=== PATIENT | male | born 1950 ===

== ENCOUNTER 2019-06-12 05:41 | Day surgery (SDC) | payer OTHER ==
[~2019-06-12] VITALS: Ht 172.7 cm; Wt 78.1 kg
[~2019-06-12 05:41] MED LIST: AMLO10 PO; AMLO5; ATOR10 PO; HYDHCL25 PO; LORA.5 PO; OMEPRAZOLE20 MG PO; TAMS.4ER PO
--- NOTE | 2019-06-12 06:43 | NUR ---
PATIENT HAS HEARING AID IN RIGHT EAR, WILL LEAVE IN PLACE, PATIENT STATES HE LEFT HIS LEFT SIDE HEARING AID AT HOME, DIDN'T WANT TO RISK LOSS OF BOTH PER PATIENT. PATIENT HAD RING BAND ON AT ADMIT, CHOSE TO REMOVE AND PLACE IN HIS RIGHT COIN POCKET OF HIS PANTS.
--- NOTE | 2019-06-12 06:43 | NUR ---
History, Chart, Medications and Allergies reviewed before start of procedure. Patient confirms NPO status and agrees with scheduled surgery. Lungs clear T/O to Auscultation. Patient reports completing Chlorhexadine shower X2 prior to admission to hospital. Patient States Post-Procedure ride home has been arranged. Pre-Op teaching done. Pt verbalizes understanding.
--- NOTE | 2019-06-12 07:17 | NUR ---
COMPARISON SHOPPER REPORT COMPLETED AT BEDSIDE WITH Leti BILLINGS RN.
--- NOTE | 2019-06-12 07:22 | NUR ---
TRACKER CARD EXPLAINED TO PATIENT'S EX-, CJ. OPPORTUNITY FOR QUESTIONS PROVIDED.
--- NOTE | 2019-06-12 09:09 | NUR ---
PT TO STEP. DENIES PAIN OR NAUSEA. ASKING FOR COFFEE. STERI STRIPS D/I.
--- NOTE | 2019-06-12 09:35 | NUR ---
WRITTEN AND VERBAL D/C INSTUCTIONS GIVEN TO PT AND VISITOR WITH STATED UNDERSTANDING.
== END 2019-06-12 09:48 | disposition home or self-care (01) ==
LOC: ORSCMMR 05:41 → ORD 07:30 → ORSCMMR 09:48
PROVIDERS: Surgery
PROC: BF031ZZ Plain Radiography of Gallbladder and Bile Ducts using Low Osmolar Contrast (ICD-10-PCS; principal; 2019-06-12 07:30)
PROC: 0FT44ZZ Resection of Gallbladder, Percutaneous Endoscopic Approach (ICD-10-PCS; principal; 2019-06-12 07:30)
DX: K80.10 Calculus of gallbladder with chronic cholecystitis without obstruction (principal); I10 Essential (primary) hypertension; K21.9 Gastro-esophageal reflux disease without esophagitis; Z79.899 Other long term (current) drug therapy
CPT/HCPCS: 74300; 88304; A9270-GY; C1729; J0690; J1100; J1885; J2250; J2405; J2704; J2710; J3010; J7120